=== PATIENT | female | born 1970 | race Caucasian/White ===

== ENCOUNTER 2019-12-13 11:55 | Emergency (ER) | payer SELFPAY ==
[2019-12-13 12:02] VITALS: BP 114/78; PULSE 72; RESP 16; TEMP 37; O2SAT 98
--- NOTE | 2019-12-13 12:12 | W.ED.GENAD ---
Discharge Plan Disposition Patient Disposition: HOME Condition: Stable Discharge Details Chief Complaint: Laceration Clinical Impression: Encounter for vaccination, Abrasion of ankle without infection Primary Care Provider: None,None ED Provider: Constance Meier Home Meds and New Rx's Prescriptions: No Action No Known Home Meds RF: 0 Discharge Instructions Instructions: Diphtheria/Acellular Pertussis/Tetanus Booster Vaccine (Tdap) (Injection), Abrasion (ED) Additional Instructions: Follow up with primary care provider in 3-5 days. Return to ED sooner if any worsening or concerns. Increase oral fluids. Please take Tylenol or Ibuprofen with food every 4-6 hours as needed for pain and swelling. Discharge Data Discharge Date/Time-TO BE ENTERED AT DEPARTURE: 12/13/19 12:33 Medical Decision Making 1215: Tdap booster ordered plan is to have patient be discharged home with follow-up with PCP. HPI General Mode of arrival: ambulatory. Date/Time Provider Initiated Documentation: 12/13/19 12:09. Limitations to Documentation: no limitations. Information obtained by: patient. HPI Narrative: 49-year-old female presents to the ED for a tetanus shot after getting a small superficial abrasion noted to her left lower extremity on Friday night. She has no other complaints or concerns. No surrounding erythema noted to the abrasion. She is not had a tetanus shot greater than 10 years. Related Data Home Medications Medication Instructions Recorded Confirmed Unknown [No Known Home Meds] 12/13/19 12/13/19 Allergies Allergy/AdvReac Type Severity Reaction Status Date / Time corn Allergy severe GI Unverified 12/13/19 12:08 Sx gluten Allergy severe GI Unverified 12/13/19 12:08 SX lactose Allergy severe GI Unverified 12/13/19 12:08 sx nickel Allergy Skin Rash Unverified 12/13/19 12:08 petrolatum,white Allergy Skin Rash Unverified 12/13/19 12:08 [From Petroleum Jelly] General Stated Complaint: Laceration LETY: 4 Review of Systems Constitutional Constitutional: Reports as per HPI, Reports system reviewed and no additional complaints, except as documented and Denies body ache(s) Integumentary/Breasts Skin/Breast: Reports as per HPI Comments: Small abrasion noted to her left lower extremity [facility] Social History (Reviewed 07/06/20 @ 12:14 by Constance Larson Smoking/Tobacco Use Status: Never Drug use: Daily Substance use type: marijuana Do you feel safe at home: Yes Do you feel safe in your relationship?: Yes Exam Skin General skin exam: elasticity normal Wounds: wounds noted (Small superficial abrasion noted to left lower extremity ) Other: No surrounding ecchymosis, red streaks or erythema. Course Vital Signs Vital signs: Vital Signs Temperature 37 C 12/13/19 12:02 Pulse 72 12/13/19 12:02 Respiratory Rate 16 12/13/19 12:02 Blood Pressure 114/78 12/13/19 12:02 Pulse Oximetry 98 12/13/19 12:02 Temperature 37 C 12/13/19 12:02 Temperature Source Temporal Artery Scan 12/13/19 12:02 Pulse 72 12/13/19 12:02 Respiratory Rate 16 12/13/19 12:02 Respiratory Effort Non-Labored 12/13/19 12:05 Blood Pressure 114/78 12/13/19 12:02 Blood Pressure Position Sitting 12/13/19 12:02 Pulse Oximetry 98 12/13/19 12:02 Oxygen Delivery Method Room Air 12/13/19 12:02 Oxygen Flow Rate 0 12/13/19 12:02 Pain Level 0 12/13/19 12:09
--- NOTE | 2019-12-13 12:20 | NUR.NOTE ---
Nursing Note: Referral handed to care management
--- NOTE | 2019-12-13 13:37 | PDOC.ERCMPRO ---
- If Service Date Differs Date of service: 12/13/19 Time of Service: 13:37 Care Management Progress Note CM briefly meets with Echo to inquire about health insurance. Echo reports she is currently uninsured and states she has always been healthy and has not had a need for health insurance or a PCP. She is agreeable to CM coordinating a referral to [facility] to enlist their assistance in exploring health insurance options. also coordinates a referral to ARAVIND Ibarra, [employer], of [facility], to assist Echo in establishing care with a PCP.
== END 2019-12-13 12:33 | disposition home or self-care (01) ==
PROVIDERS: Emergency Provider Registered Nurse Emergency
DX: S90.512A Abrasion, left ankle, initial encounter (principal); W26.8XXA Contact with other sharp object(s), not elsewhere classified, initial encounter
CPT/HCPCS: 90471; 99284; 99282